=== PATIENT | female | born 1990 | race Caucasian/White ===

== ENCOUNTER 2016-11-10 23:08 | Inpatient (IN) | payer MEDICAID ==
[~2016-11-10] VITALS: Ht 157.5 cm; Wt 82.5 kg
[~2016-11-10 23:08] MED LIST: PREN1TAB17 PO
--- NOTE | 2016-11-11 00:28 | TRIAGE ---
OB Triage Datetime Report Generated by CPN: 11/11/2016 00:27 Datetime: 11/11/2016 00:24 Time of Arrival: 11/10/2016 23:05 EGA: 39.3 Arrived By: Wheelchair Arrived From: Home Chief Complaint: w/ c/o srom at 2225 Movement: Present Contractions: Irregular Time Contractions Began: 11/10/2016 16:00 Rupture of Membranes: Ruptured Vaginal Bleeding: None Vaginal Discharge: Present Recent Sexual Intercouse: Denies Abdominal Trauma: Not Applicable Time Provider Notified: 11/10/2016 23:40 Provider Notified: Dr Milton Initial Plan: EFM, SVE Datetime: 11/11/2016 00:18 Vaginal Exam Membrane Status: Ruptured
[2016-11-11 00:48] VITALS: BP 121/69; PULSE 69; RESP 18
[2016-11-11] MEDS ORDERED: FERR134T PO (00:50)
[2016-11-11] MEDS ORDERED: METHYLERGONOVINE 0.2 MG INJ IM PRN (01:00)
[2016-11-11] MEDS ORDERED: OXYTOCIN 30 UNITS/LR 500 ML IV SCH ×3 (01:00→09:30)
[2016-11-11] MEDS ORDERED: MISOPROSTOL 200 MCG TAB PR PRN (01:00)
[2016-11-11] MEDS ORDERED: IBUPROFEN 600 MG TAB PO PRN (01:00)
[2016-11-11] MEDS ORDERED: LIDOCAINE 1% (MPF) 30 ML INJ INJ PRN (01:00)
[2016-11-11] MEDS ORDERED: CARBOPROST 250 MCG INJ IM PRN (01:00)
[2016-11-11] MEDS ORDERED: OXYTOCIN 30 UNITS/LR 500 ML IV PRN (01:00)
[2016-11-11] MEDS: LACTATED RINGER'S 1,000 ML IV SCH ×3 (01:13→15:28)
[2016-11-11 01:42] VITALS: BP 110/69; PULSE 73; RESP 18
[2016-11-11 01:43] LABS: ADD SCAN DIFF NO
[2016-11-11 01:46] LABS: BASOPHILS % 0.5 % (0.0-2.0); EOSINOPHILS # 0.1 10^3/ul (0.0-0.5); EOSINOPHILS % 0.8 % (0.0-7.0); HEMATOCRIT 35.6 % (37.0-47.0); HEMOGLOBIN 12.3 g/dl (12.0-16.0); LYMPHOCYTES # 2.4 10^3/ul (0.8-2.9); LYMPHOCYTES % 30.4 % (15.0-51.0); MEAN CORPUSCULAR HEMOGLOBIN 30.4 pg (29.0-33.0); MEAN CORPUSCULAR HGB CONC 34.6 g/dl (32.0-37.0); MEAN CORPUSCULAR VOLUME 87.9 fl (82.0-101.0); MEAN PLATELET VOLUME 10.4 fl (7.4-10.4); MONOCYTE # 0.5 10^3/ul (0.3-0.9); MONOCYTES % 6.1 % (0.0-11.0); NEUTROPHIL # 4.7 10^3/ul (1.6-7.5); NEUTROPHILS % 60.7 % (39.0-77.0); PLATELET COUNT 181 10^3/UL (140-415); RED BLOOD COUNT 4.05 10^6/ul (4.20-5.40); RED CELL DISTRIBUTION WIDTH 13.2 % (11.5-14.5); WHITE BLOOD COUNT 7.8 10^3/ul (4.8-10.8)
[2016-11-11 01:56] LABS: INR 0.93; PARTIAL THROMBOPLASTIN TIME 27.4 Sec (25.0-35.0); PROTIME 12.5 Sec (12.2-14.2)
--- NOTE | 2016-11-11 02:13 | RADRPT ---
PROCEDURE: US OB. CLINICAL INDICATION: Spontaneous rupture of membranes, labor. TECHNIQUE: Multiple sonographic images of the pelvis were obtained. Transabdominal imaging only w as performed. The images were reviewed on a PACS workstation. COMPARISON: No prior studies are available for comparison. FINDINGS: There is a single viable intrauterine gestation. Cardiac activity is present with 139 beats per minute. There is a cephalic presentation. Measurements were made in order to determine age. The results are as follows: BPD = 9.12 cm HC = 33.94 cm AC = 36.42 cm FL = 7.73 cm Estimated gestational age of approximately 39 weeks 0 days. The estimated date of delivery is 11/18/2016. The EFW = 3820 g. EFW percentile: 75% The placenta is fundal, grade II. There is no evidence for an abruption or placenta previa. IMPRESSION: 1. Single viable intrauterine gestation of approximately 39 weeks 0 days, based on ultrasound measu rements. The estimated date of delivery is 11/18/2016. 2. EFW percentile: 75%. RPTAT: HTAR .Toribio Luciano MD, MD Date Time Electronically viewed and signed by .Toribio Luciano MD, on 11/11/2016 02:13 .R/
--- NOTE | 2016-11-11 06:50 | HP ---
Date/Time of Note Date/Time of Note DATE: 11/11/16 TIME: 06:45 OB - History Hx of Present Free Text/Dictation 26 Year-old with SIUP at 39 3/7 weeks presents with a chief complaint of LOF. She has been receiving her care with Dr. Whiteside. She states good movement. She denies nausea, vomiting, shortness of breath, chest pain, and abdominal pain between contractions, headache, visual changes, vaginal bleeding. Chief Complaint: Leakage of fluid : 3 Para: 0 Spontaneous : 2 Care: Good Care Ultrasounds: Normal mid trimester US Obstetrical Complications: None Medical Complications: None Past Family/Social History * Past Medical, Surgical, Family and Obstetric Histories reviewed from chart. Blood Type: O+ Rubella: immune RPR/VDRL: Negative GBS Status: Negative HBsAG: Negative OB Admission Exam Vital Signs Vital Signs Vital Signs Date Time Temp Pulse Resp B/P Pulse Ox O2 Delivery O2 Flow Rate FiO2 11/11/16 01:42 98.6 73 18 110/69 Room Air Physical Exam HEENT: WNL Heart: Rhythm Normal Lungs: Clear Abdomen: WNL Extremities: Normal Cervical Dilatation: 1cm Effacement: 50% Station: -3 Membranes: Ruptured Amniotic Fluid: Clear Heart Rate: 140's Accelerations: Accelerations Present Decelerations: No Decelerations Varibility: Moderate Contractions on Admission: 6-10 Minutes Apart Intensity: Mild Last 72 hours Lab Results CBC & BMP 11/11/16 01:25 OB Assessment/Plan Other plan: 26 Year-old with SIUP at 39 3/7 weeks with SROM - FHR: No sign of metabolic acidosis- Category I - Continious EFM, toco - CBC, blood type and screen - Analgesia options with R/B/A discussed in detail with patient - Epidural per patient request - Please see the orders - O+/Rubella: Immune/GBS negative Admission, procedures, expectations, risks and possible complications have been discussed in detail with the patient. Risk of vaginal delivery including but not limited to bleeding, infection, cervical laceration, placental retention, injury to fetus, blood transfusion, blood transfusion related infection, risk of anesthesia, adhesion, cervical laceration, episiotomy/laceration, possible delivery with risk of bleeding, infection, injury to other organs ( bowel, bladder, ureter, vessels, nerves), injury to fetus, blood transfusion, blood transfusion related infection, risk of anesthesia, scar and hernia formation, needs for future , removal of uterus or any other indicated surgery discussed with the patient. She expressed understanding and repeats the risks. All of her questions were answered; all appropriate consents will be signed. PHYSICIAN'S VERIFICATION OF INFORMED CONSENT: The patient was counseled regarding the procedure, its indications, risks, potential complications and alternatives and any questions were answered. Consent was obtained. PLANNED PROCEDURE/TREATMENT: Vaginal delivery with possible vacuum/forceps delivery episiotomy, repair of laceration possible delivery PHYSICIAN'S VERIFICATION OF INFORMED CONSENT FOR BLOOD TRANSFUSION: There is a reasonable possibility that blood transfusion will be necessary as a result of the patient's procedure. I have discussed the following with the patient/patient's legal office services representative: An explanation of the benefits and risks of the transfusion of blood or blood products and the possible alternatives. Al questions have been answered to the patient's/patients legal representatives satisfaction. INFORMED CONSENT: The patient has been informed of: - The nature of the proposed care, treatment, services, medic- Potential benefits, risks or side effects, including potential problems related to recuperation. - The likelihood of achieving care treatment and service goals. - Reasonable alternatives to the proposed care, treatment and service. - The relevant risks, benefits and side effects related to alternatives, including the possible results of not receiving care, treatment and services. - When indicated, any limitations on the confidentiality of information learned from or about the patient. - If appropriate, the risks, benefits and alternatives of the drugs to be used for sedation/analgesia including moderate sedation. - If appropriate, patient has been provided information on the risks, benefits and alternatives to the transfusion of blood and/or blood products. SHANON CUNNINGHAM Nov 11, 2016 06:50
[2016-11-11] MEDS ORDERED: AMPICILLIN 2 GM/NS (PMX) 100 ML IVPB ONE (10:30)
[2016-11-11] MEDS: AMPICILLIN 1 GM/NS (PMX) 50 ML IVPB SCH ×3 (13:14→23:02)
[2016-11-11] MEDS: BUTORPHANOL 2 MG INJ IV PRN ×2 (15:46→20:28)
[2016-11-12] MEDS: LACTATED RINGER'S 1,000 ML IV SCH ×3 (00:02→15:35)
[2016-11-12] MEDS: LACTATED RINGER'S 1,000 ML IV PRN ×2 (00:11→23:19)
[2016-11-12] MEDS ORDERED: morphine 2 MG INJ IV PRN ×2 (00:30)
[2016-11-12] MEDS ORDERED: CITRIC ACID/NA CITRATE 30 ML CUP PO ONE (00:30)
[2016-11-12] MEDS ORDERED: ONDANSETRON 4 MG INJ IV ONE (00:30)
[2016-11-12] MEDS ORDERED: PROCHLORPERAZINE 10 MG INJ IV PRN (00:30)
[2016-11-12] MEDS ORDERED: NALOXONE (0.4 MG/ML) INJ IV PRN (00:30)
[2016-11-12] MEDS ORDERED: DIPHENHYDRAMINE 50 MG INJ IV PRN (00:30)
[2016-11-12] MEDS ORDERED: KETOROLAC 30 MG INJ IV PRN (00:30)
[2016-11-12] MEDS ORDERED: ONDANSETRON 4 MG INJ IV PRN (00:30)
[2016-11-12] MEDS ORDERED: FENTAnyl 2MCG/ML-ROPIV 0.2% 100 ML ONE (00:36)
[2016-11-12] MEDS: AMPICILLIN 1 GM/NS (PMX) 50 ML IVPB SCH ×6 (03:07→22:00)
[2016-11-12] MEDS: FENTAnyl 2MCG/ML-ROPIV 0.2% 100 ML BAG EPI SCH ×2 (09:22→16:58)
[2016-11-12] MEDS ORDERED: MINERAL OIL LIGHT 10 ML VIAL TOP ONE (11:30)
[2016-11-12] MEDS ORDERED: CARBOPROST 250 MCG INJ IM PRN (23:00)
[2016-11-12] MEDS ORDERED: MISOPROSTOL 200 MCG TAB PR PRN (23:00)
[2016-11-12] MEDS ORDERED: CEFAZOLIN 2 GM/50 ML (PMX) 50 ML IV SCH (23:00)
[2016-11-12] MEDS ORDERED: OXYTOCIN 30 UNITS/LR 500 ML IV SCH (23:00)
[2016-11-12] MEDS ORDERED: OXYTOCIN 30 UNITS/LR 500 ML IV PRN (23:00)
[2016-11-12] MEDS ORDERED: METHYLERGONOVINE 0.2 MG INJ IM PRN (23:00)
[2016-11-12] MEDS ORDERED: METOCLOPRAMIDE 10 MG INJ ONE (23:36)
[2016-11-12] MEDS ORDERED: PHENYLephrine (100 MCG/ML) 5ML SYG ONE (23:36)
[2016-11-12] MEDS ORDERED: NA BICARBONATE 8.4% 50 ML SYG ONE (23:36)
[2016-11-12] MEDS ORDERED: FENTAnyl 50 MCG/ML VIAL ONE (23:36)
[2016-11-12] MEDS ORDERED: OXYTOCIN 10 UNIT INJ ONE (23:36)
[2016-11-12] MEDS ORDERED: morphine SULFATE/PF (10 MG/10 ML) INJ ONE (23:36)
[2016-11-12] MEDS ORDERED: LIDOCAINE 2% (SDV) 5 ML INJ ONE (23:36)
--- NOTE | 2016-11-12 23:39 | QN ---
Documentation Comment Patient had been managed during her intrapartum course by Dr. Whiteside. I was called by RN when there was no progression after 5 hours as well as category 2 tracing. Attended to the patient bedside. NST reviewed. Deep variable with slow recovery as well as decreased variability noted. Cervical exam still 680-1 vertex due to failure to progress due to failure to progress over 5 hours as well as category 2 tracing discussed with the patient regarding . Risk and benefit of including risk of infection, bleeding, damage to surrounding structures including bowel and bladder and risk of blood transfusion including but not limited to blood borne infection including HIV hepatitis B and C and transfusion reaction discussed with the patient in detail and informed consent was obtained. Patient verbalized understanding all above risks and desires to proceed. OR and anesthesia was notified. Proceed with urgent section RYANN BUNDY MD Nov 12, 2016 23:39
[2016-11-12] MEDS ORDERED: KETAMINE 500 MG INJ ONE (23:49)
[2016-11-12] MEDS ORDERED: MIDAZOLAM 1 MG/ML 2 ML INJ ONE (23:59)
[2016-11-13] VITALS (7 sets, daily range): BP systolic 113–137; BP diastolic 68–83; PULSE 81–100; RESP 18–20
[2016-11-13] MEDS ORDERED: TRIMETHOBENZAMIDE 100 MG/ML VIAL IM PRN (00:30)
[2016-11-13] MEDS ORDERED: morphine 2 MG INJ IV PRN ×2 (00:30)
[2016-11-13] MEDS ORDERED: ONDANSETRON 4 MG INJ IV PRN ×2 (00:30)
[2016-11-13] MEDS ORDERED: FENTAnyl 50 MCG/ML VIAL IV PRN ×3 (00:30)
[2016-11-13] MEDS ORDERED: EPHEDrine SULFATE 50 MG/5 ML SYG IV PRN (00:30)
[2016-11-13] MEDS ORDERED: LABETALOL HCL 20MG INJ IV PRN (00:30)
[2016-11-13] MEDS ORDERED: DIPHENHYDRAMINE 50 MG INJ IV PRN ×2 (00:30)
[2016-11-13] MEDS ORDERED: hydrALAzine 20 MG INJ IV PRN (00:30)
[2016-11-13] MEDS ORDERED: HYDROmorphONE (0.2 MG/ML) 10ML SYG IV PRN ×3 (00:30)
[2016-11-13] MEDS ORDERED: NALOXONE (0.4 MG/ML) INJ IV PRN (00:30)
[2016-11-13] MEDS ORDERED: MEPERIDINE 25 MG INJ IV PRN (00:30)
[2016-11-13] MEDS: LACTATED RINGER'S 1,000 ML IV SCH ×3 (00:50→17:20)
--- NOTE | 2016-11-13 00:52 | OPR ---
Operative Report Planned Procedure Free Text/Dictation Patient had been managed after she presented with SROM and during her labor course by Dr. Whiteside. I was called by RN when there was failure to progress after 5 hours noted no cervical change, Tracing reviewed and noted to be Cat 2 Discussed with the patient about section due to FTP and Cat 2 tracing Risks and benefits of section including risk of infection, bleeding, damage to surrounding structures including bowel and bladder and risk of blood transfusion including but not limited to blood borne infection including HIV, hepatitis B and C and transfusion reaction discussed with the patient in detail and informed consent was obtained, Patient verbalized understanding all above risks and desired to proceed. OR and anesthesia notified Procedure date Nov 12, 2016 Procedure(s) PLTCS vis pfanenstiel skin incision Performed by: RYANN BUNDY MD Assisting provider: RAFAEL ÁLVAREZ Anesthesiologist: Rafa Kingsley M.D. Pre-procedure diagnosis IUP at 39 + weeks SROM Acive labor FTP Cat 2 tracing Anesthesia Type: epidural Procedure Description Under satisfactory [Epidural ] anesthesia, the patient was prepped and draped and placed in a supine position, tilted to the left. Pfannenstiel incision was made, carried through the subcutaneous tissue. Bleeders brought under control with electrocautery. Fascia incised to the length of the incision. Rectus muscles from the fascia, divided midline. Peritoneum exposed, entered through a transverse incision. Exploration of abdomen revealed gravid uterus. Bladder flap was developed. Transverse incision was made in the lower segment of the uterus. Amniotic sac ruptured. [Clear ] amniotic fluid noted. head was grasped and was brought up to the incision,. it was noted to be OP. then the [] Nasal oropharyngeal suction was performed. The baby was handed to the team for immediate attention. baby boy , 7, 8, 9 The placenta was delivered manually intact. Uterine cavity was cleaned with wet sponge and drainage established. Uterus closed in 2 layers using 0 Monocryl [] in continuous fashion in 2 layers. Excellent Hemostasis of the incision obtained. Peritoneal cavity irrigated with warm saline. Sponge, needle and instrument count reported to be correct. Abdominal peritoneum closed with 2-0 vicryl continuously. Rectus muscle approximated with [2-0 vicryl ]. Fascia closed with 1-0 PDS , and skin closed with 3-0 Monocryl . Estimated blood loss 600 mL. Post-Procedure Findings: Live Baby [], Apgars [] and [], weight [], position [], [] presentation []cord. Specimen removed: Yes Complications: None Pt Condition post procedure: stable Disposition: PACU Physician Certification I, the undersigned physician, hereby certify that I have discussed the procedure described in this consent form with this patient (or the patient's legal veterans contact representative), including: * The risk and benefits of the procedure; * Any adverse reactions that may reasonably be expected to occur; * Any alternative efficacious methods of treatment which may be medically viable ; * The potential problems that may occur during recuperation; * Potential for blood transfusion and associated risks/benefits; and * Any research or economic interest I may have regarding this treatment. I further certify that the patient/legally responsible person was encouraged to ask question and that all questions were answered. RYANN BUNDY MD Nov 13, 2016 00:52
[2016-11-13] MEDS: AMPICILLIN 1 GM/NS (PMX) 50 ML IVPB SCH (01:00)
[2016-11-13 01:05] LABS: CBV Oxygen Sat 90.7 mmHG; CBV Total Hemglobin 12.9 g/dl; Cord Blood Venous AADO2 50.1 mmHg; Cord Blood Venous pO2 47.1 mmHG (15.0-45.0); Fraction OxyHgb Cord Venous 89.3 %; MODE ROOM AIR; MetHgb Cord Venous 0.5 %; Sample Type CBV
[2016-11-13] MEDS: KETOROLAC 30 MG INJ IV PRN ×3 (02:08→19:01)
[2016-11-13] MEDS ORDERED: GENTAMICIN IVPB SCH (05:00)
[2016-11-13] MEDS ORDERED: SOD CHLORIDE 0.9% IVPB SCH (05:00)
[2016-11-13] MEDS ORDERED: OXYTOCIN 30 UNITS/LR 500 ML IV PRN (05:00)
[2016-11-13] MEDS ORDERED: POLYSACCHARIDE IRON COMPLEX CAP PO ONE (05:00)
[2016-11-13] MEDS ORDERED: METHYLERGONOVINE 0.2 MG INJ IM PRN (05:00)
[2016-11-13] MEDS ORDERED: CARBOPROST 250 MCG INJ IM PRN (05:00)
[2016-11-13] MEDS ORDERED: MISOPROSTOL 200 MCG TAB PR PRN (05:00)
[2016-11-13] MEDS: CLINDAMYCIN 900 MG/D5W (PMX) 50 ML IV SCH ×3 (05:45→21:16)
[2016-11-13 07:10] LABS: ADD SCAN DIFF NO
[2016-11-13 07:14] LABS: BASOPHILS % 0.2 % (0.0-2.0); EOSINOPHILS % 0.2 % (0.0-7.0); HEMATOCRIT 32.6 % (37.0-47.0); HEMOGLOBIN 10.8 g/dl (12.0-16.0); LYMPHOCYTES # 1.8 10^3/ul (0.8-2.9); LYMPHOCYTES % 14.3 % (15.0-51.0); MEAN CORPUSCULAR HEMOGLOBIN 29.8 pg (29.0-33.0); MEAN CORPUSCULAR HGB CONC 33.1 g/dl (32.0-37.0); MEAN CORPUSCULAR VOLUME 90.1 fl (82.0-101.0); MEAN PLATELET VOLUME 10.2 fl (7.4-10.4); MONOCYTE # 0.7 10^3/ul (0.3-0.9); MONOCYTES % 5.2 % (0.0-11.0); NEUTROPHIL # 10.2 10^3/ul (1.6-7.5); NEUTROPHILS % 79.6 % (39.0-77.0); PLATELET COUNT 164 10^3/UL (140-415); RED BLOOD COUNT 3.62 10^6/ul (4.20-5.40); RED CELL DISTRIBUTION WIDTH 13.3 % (11.5-14.5); WHITE BLOOD COUNT 12.8 10^3/ul (4.8-10.8)
[2016-11-13] MEDS: MULTIVIT/MIN/FOLATE/IRON/PREN TAB PO SCH (09:00)
[2016-11-14] MEDS: IBUPROFEN 600 MG TAB PO SCH ×5 (00:33→23:54)
[2016-11-14] MEDS: ACETAMINOPHEN/CODEINE #3 TAB PO PRN (00:34)
[2016-11-14 03:45] VITALS: BP 102/65; PULSE 76; RESP 18
[2016-11-14] MEDS: LACTATED RINGER'S 1,000 ML IV SCH (07:00)
[2016-11-14 08:00] VITALS: BP 109/67; PULSE 70; RESP 18
[2016-11-14] MEDS: MULTIVIT/MIN/FOLATE/IRON/PREN TAB PO SCH (08:34)
--- NOTE | 2016-11-14 11:59 | PN ---
Date/Time of Note Date/Time of Note DATE: 11/14/16 TIME: 11:57 OB Subjective Subjective Subjective Patient doing well. Tolerating POs. Passing flatus. Pain controlled. OB Objective Objective Objective AFVSS Gen: NAD Abd: I-C/D/I OB Assessment/Plan Other Assessment: POD1 Other plan: Continue routine postop care. MAURILIO EMERSON Nov 14, 2016 11:59
[2016-11-14 15:50] VITALS: BP 98/52; PULSE 74; RESP 18
[2016-11-14 19:45] VITALS: BP 110/68; PULSE 74; RESP 18
[2016-11-15 04:00] VITALS: BP 100/56; PULSE 72; RESP 19
[2016-11-15] MEDS: IBUPROFEN 600 MG TAB PO SCH ×4 (06:13→23:51)
[2016-11-15 08:10] VITALS: BP 109/77; PULSE 74; RESP 18
[2016-11-15] MEDS: MULTIVIT/MIN/FOLATE/IRON/PREN TAB PO SCH (08:32)
--- NOTE | 2016-11-15 10:23 | PN ---
Date/Time of Note Date/Time of Note DATE: 11/15/16 TIME: 10:21 OB Subjective Subjective Subjective Status post primary Postop day #2 OB Objective Objective Objective Patient is doing well and has no complaints AF, VSS HEENT: WNL Heart: Rhythm Normal Lungs: Clear Abdomen: WNL (Incision clean dry intact) OB Assessment/Plan Other Assessment: Status post postop day #2 Other plan: Repeat labs in a.m. Continue with present management KATHY WHEAT MD Nov 15, 2016 10:22
[2016-11-15 11:30] LABS: ADD SCAN DIFF NO
[2016-11-15 11:33] LABS: BASOPHILS % 0.2 % (0.0-2.0); EOSINOPHILS # 0.1 10^3/ul (0.0-0.5); EOSINOPHILS % 1.3 % (0.0-7.0); HEMATOCRIT 30.5 % (37.0-47.0); HEMOGLOBIN 10.2 g/dl (12.0-16.0); LYMPHOCYTES # 1.2 10^3/ul (0.8-2.9); LYMPHOCYTES % 12.9 % (15.0-51.0); MEAN CORPUSCULAR HEMOGLOBIN 29.8 pg (29.0-33.0); MEAN CORPUSCULAR HGB CONC 33.4 g/dl (32.0-37.0); MEAN CORPUSCULAR VOLUME 89.2 fl (82.0-101.0); MEAN PLATELET VOLUME 9.9 fl (7.4-10.4); MONOCYTE # 0.3 10^3/ul (0.3-0.9); MONOCYTES % 3.3 % (0.0-11.0); NEUTROPHIL # 7.3 10^3/ul (1.6-7.5); NEUTROPHILS % 81.4 % (39.0-77.0); PLATELET COUNT 215 10^3/UL (140-415); RED BLOOD COUNT 3.42 10^6/ul (4.20-5.40); RED CELL DISTRIBUTION WIDTH 13.3 % (11.5-14.5); WHITE BLOOD COUNT 8.9 10^3/ul (4.8-10.8)
[2016-11-15 15:40] VITALS: BP 102/57; PULSE 66; RESP 18
[2016-11-15 20:20] VITALS: BP 114/61; RESP 17
[2016-11-15] MEDS: LANOLIN 7 GM TUBE TOP PRN (23:52)
[2016-11-16] MEDS: LANOLIN 7 GM TUBE TOP PRN (03:04)
[2016-11-16 04:00] VITALS: BP 101/56; PULSE 73; RESP 18
[2016-11-16] MEDS: IBUPROFEN 600 MG TAB PO SCH ×2 (05:44→12:35)
[2016-11-16 08:00] VITALS: BP 107/62; PULSE 71; RESP 17
[2016-11-16] MEDS: ACETAMINOPHEN/CODEINE #3 TAB PO PRN (08:31)
[2016-11-16] MEDS: MULTIVIT/MIN/FOLATE/IRON/PREN TAB PO SCH (08:31)
[2016-11-16] MEDS ORDERED: MEASLES,MUMPS,RUBELLA VACCINE INJ SC* ONE (09:00)
[2016-11-16] MEDS ORDERED: DIPHTH/TET/ACEL PERTUSS (ADULT) 0.5 ML VIAL IM* ONE (09:00)
--- NOTE | 2016-11-16 14:30 | DS ---
DATE OF ADMISSION: 11/11/2016 DATE OF DISCHARGE: 11/16/2016 ADMITTING DIAGNOSIS: at term with spontaneous rupture of membranes. HISTORY: A 26-year-old female 3, para 0-0-2-0 at time of admission, para 1-0-2-1 at time of discharge with term , presented with spontaneous rupture of membranes on 11/13/2016, afte r obtaining informed consent, the patient underwent a primary section due to failure to pro eduard and category 2 heart tracing. The patient's operation was uncomplicated. Postoperative ly, patient was given clear liquid diet, which was advanced to regular diet, which she tolerated wel l. The patient is discharged on postop day #3 after having had adequate bladder and bowel function. CONDITION ON DISCHARGE: Stable. DISCHARGE INSTRUCTIONS: DIET: Regular. ACTIVITIES: Pelvic rest and no strenuous activities. MEDICATIONS: 1. Motrin as needed for pain. 2. Continue with vitamins, ferrous sulfate. Follow up in clinic in 2 weeks. FINAL DIAGNOSES: 1. Term , delivered by section. 2. Failure to progress. 3. Category 2 heart tracing. 4. Mother with single liveborn. Dictated By: OFELIA DOBBS/NTS Conf#: [id number] DID#: [id number]
== END 2016-11-16 15:55 | disposition home or self-care (01) | DRG 766 ==
LOC: L-D 23:08 → OBT 23:08 → L-D 11-11 00:15 → OBT 11-11 00:15 → L-D 11-12 02:01 → PP1 11-13 04:11
PROVIDERS: ADMIT Obstetrics & Gynecology; ATTEND Obstetrics & Gynecology
PROC: 4A1HX4Z Monitoring of Products of Conception, Cardiac Electrical Activity, External Approach (ICD-10-PCS; 2016-11-11)
PROC: 4A033R1 Measurement of Arterial Saturation, Peripheral, Percutaneous Approach (ICD-10-PCS; 2016-11-13)
PROC: 10D00Z1 Extraction of Products of Conception, Low, Open Approach (ICD-10-PCS; principal; 2016-11-13 00:15)
PROC: 3E0234Z Introduction of Serum, Toxoid and Vaccine into Muscle, Percutaneous Approach (ICD-10-PCS; 2016-11-16)
DX: O62.0 Primary inadequate contractions (principal); O76 Abnormality in fetal heart rate and rhythm complicating labor and delivery; Z23 Encounter for immunization; Z3A.39 39 weeks gestation of pregnancy; Z37.0 Single live birth
CPT/HCPCS: 36415; 62319; 76815; 82803; 85025; 85610; 85730; 86592; 86900; 86901; 87340; 90715; 94760; 99464; G0463; J0290; J0690; J1200; J1580; J1885; J2210; J2250; J2274; J2370; J2405; J2590; J2765; J3010; J7120

== ENCOUNTER 2017-01-30 18:58 | Emergency (ER) | payer MEDICAID ==
[~2017-01-30] VITALS: Ht 160 cm; Wt 73.2 kg
[~2017-01-30 18:58] MED LIST changes: +FERR134T PO
[2017-01-30 19:03] VITALS: Ht 160 cm; Wt 73.2 kg
[2017-01-30] MEDS ORDERED: CEPH-443 PO (20:16)
[2017-01-30] MEDS ORDERED: SULF1TAB31 PO (20:16)
[2017-01-30] MEDS ORDERED: IBUP-1542 PO (20:16)
[2017-01-30 20:32] VITALS: BP 119/66; PULSE 69; RESP 18; TEMP 98
--- NOTE | 2017-01-30 20:32 | ERD ---
ER Documentation Chief Complaint Date/Time DATE: 01/30/17 TIME: 20:29 Chief Complaint abscess to rt nipple and inner buttock. pt. is breast feeding HPI 28-year-old female is here in emergency department for redness and swelling on the left buttock area noticed 3 days ago. Patient always has on and off abscess on the left buttock area, now it is more of a pimple, was oozing some purulent discharge. Patient's complete notes pain sharp pain 4/and scale, is worse upon touching the area. Patient also noted some overgrowth in the areola of the right nipple area, no redness or swelling, no purulent discharge. No discharge coming from the nipple. No deformity noted. Nontender on palpation. Patient denies any fever or chills. ROS All systems reviewed and are negative except as per history of present illness. Medications Home Meds Active Scripts Ibuprofen* (Motrin*) 600 Mg Tab, 600 MG PO Q6H Y for PAIN AND OR ELEVATED TEMP, #30 TAB Prov:HERMINIO GOMEZ NP 01/30/17 Cephalexin* (Keflex*) 500 Mg Capsule, 500 MG PO QID for 10 Days, CAP Prov:HERMINIO GOMEZ NP 01/30/17 Sulfamethoxazole/Trimethoprim* (Bactrim Ds* Tablet) 1 Each Tablet, 1 TAB PO BID for 10 Days, #20 TAB Prov:HERMINIO GOMEZ NP 01/30/17 Reported Medications Ferrous Sulfate (Iron) 134 Mg Tablet, 134 MG PO DAILY, TAB 11/11/16 Vit-Iron Fumarate-FA ( Tablet) 1 Each Tablet, 1 EACH PO DAILY 11/29/13 Allergies Allergies: Coded Allergies: No Known Allergy (Unverified , 11/11/16) PMhx/Soc Medical and Surgical Hx: pt denies Medical Hx, pt denies Surgical Hx Hx Alcohol Use: No Hx Substance Use: No Hx Tobacco Use: No Smoking Status: Never smoker FmHx Family History: No coronary disease, No diabetes, No other Physical Exam Vitals Vital Signs Date Time Temp Pulse Resp B/P Pulse Ox O2 Delivery O2 Flow Rate FiO2 01/30/17 19:03 98.3 88 18 119/86 99 Physical Exam GENERAL: The patient is well developed and appropriate for usual state of health, in no apparent distress. CHEST: Clear to auscultation bilaterally. There are no rales, wheezes or rhonchi. Noted overgrowth of glands in the areols of the right breast area, no nipple discharge, nontender on palpation. HEART: Regular rate and rhythm. No murmurs, clicks, rubs or gallops. No S3 or S4. ABDOMEN: Soft, nontender and nondistended. Good bowel sounds. No rebound or guarding. No gross peritonitis. No gross organomegaly or masses. No Marinelli sign or McBurney point tenderness. BACK: No midline or flank tenderness. EXTREMITIES: Equal pulses bilaterally. There is no peripheral clubbing, cyanosis or edema. No focal swelling or erythema. Full range of motion. Grossly neurovascularly intact. NEURO: Alert and oriented. Cranial nerves 2-12 intact. Motor strength in all 4 extremities with 5/5 strength. Sensation grossly intact. Normal speech and gait. SKIN: Noted 1 cm diameter erythematous indurated area on the left buttock, no fluctuance noted. There is no apparent ecchymosis or petechia. The skin is warm and dry. HEMATOLOGIC AND LYMPHATIC: There is no evidence of excessive bruising or lymphedema. No gross cervical, axillary, or inguinal lymphadenopathy. Procedures/MDM Medical decision making: Patient symptoms in the left buttock was likely consistent with a early soft tissue abscess, no fluctuance noted at this time, incision and drainage not indicated at this time. Oral antibiotics will be started, patient is advised to pump and dump for 14 days for antibiotics since patient is breast-feeding, substitute with the formula feeding. Noted normal variation in the right areolar, no symptoms of any abscess or infection, no symptoms of any cellulitis or mastitis. Patient was given for Bactrim, Keflex, ibuprofen, is advised to follow-up with primary care doctor in 2-3 days for reevaluation of symptoms and recheck. Patient is advised to return to emergency department for any worsening symptoms. Disposition: Home. Stable Departure Diagnosis: Primary Impression: Soft tissue abscess Condition: Stable Patient Instructions: Abscess, Incision And Drainage HERMINIO GOMEZ NP Jan 30, 2017 20:32
== END 2017-01-30 20:32 | disposition home or self-care (01) ==
LOC: FTE 18:58
DX: L02.31 Cutaneous abscess of buttock (principal)
CPT/HCPCS: 99284

== ENCOUNTER 2017-05-07 13:47 | Emergency (ER) | payer MEDICAID ==
[~2017-05-07] VITALS: Ht 160 cm; Wt 74.5 kg
[~2017-05-07 13:47] MED LIST changes: +CEPH-443 PO; +IBUP-1542 PO; +SULF1TAB31 PO
[2017-05-07 14:05] VITALS: Ht 160 cm; Wt 74.5 kg
[2017-05-07] MEDS ORDERED: KETOROLAC 30 MG INJ IM STA (15:39)
[2017-05-07] MEDS ORDERED: IBUP400T22 PO (15:42)
--- NOTE | 2017-05-07 15:55 | ERD ---
ER Documentation Chief Complaint Date/Time DATE: 05/07/17 TIME: 15:49 Chief Complaint back pain HPI Patient is a 26 year old female who presents with chronic back pain. States that she hurt her back 3 years ago, at work when she fell backwards but did not have any fractures or dislocations. States that the last couple of days, she has been taking care of her baby and carrying her around and has had pain in her low back. Denies radiation of pain, denies numbness tingling or weakness. Denies bowel or bladder incontinence. No new trauma. Has not taken any medication for her symptoms, is . no other c/o ROS All systems reviewed and are negative except as per history of present illness. Medications Home Meds Active Scripts Ibuprofen* (Motrin*) 400 Mg Tab, 400 MG PO Q6, #30 TAB Prov:DULCE MARIA SUTTON PA-C 05/07/17 Ibuprofen* (Motrin*) 600 Mg Tab, 600 MG PO Q6H Y for PAIN AND OR ELEVATED TEMP, #30 TAB Prov:HERMINIO GOMEZ NP 01/30/17 Cephalexin* (Keflex*) 500 Mg Capsule, 500 MG PO QID for 10 Days, CAP Prov:HERMINIO GOMEZ NP 01/30/17 Sulfamethoxazole/Trimethoprim* (Bactrim Ds* Tablet) 1 Each Tablet, 1 TAB PO BID for 10 Days, #20 TAB Prov:HERMINIO GOMEZ NP 01/30/17 Reported Medications Ferrous Sulfate (Iron) 134 Mg Tablet, 134 MG PO DAILY, TAB 11/11/16 Vit-Iron Fumarate-FA ( Tablet) 1 Each Tablet, 1 EACH PO DAILY 11/29/13 Allergies Allergies: Coded Allergies: No Known Allergy (Unverified , 11/11/16) PMhx/Soc Medical and Surgical Hx: pt denies Medical Hx History of Surgery: Yes ( X1) Anesthesia Reaction: No Hx Alcohol Use: No Hx Substance Use: No Hx Tobacco Use: No Smoking Status: Never smoker FmHx Family History: No coronary disease, No diabetes, No other Physical Exam Vitals Vital Signs Date Time Temp Pulse Resp B/P Pulse Ox O2 Delivery O2 Flow Rate FiO2 05/07/17 14:05 98.6 78 19 115/57 100 Physical Exam GENERAL: Well-developed, well-nourished female. Appears in no acute distress. HEAD: Normocephalic, atraumatic. EYES: Pupils are equally reactive bilaterally. EOMs grossly intact. No conjunctival erythema. ENT: Moist mucous membranes. No uvula deviation. No kissing tonsils. No exudates. NECK: Supple. No lymphadenopathy or thyromegaly. No meningismus. negative kernig. negative brudinski. LUNG: Clear to auscultation bilaterally. No rhonchi, wheezing, rales or coarse breath sounds. HEART: Regular rate and rhythm. No murmurs, rubs or gallops. BACK: No midline tenderness. no spinal or paraspinal tenderness. No step-offs or deformities. No open wounds or lacerations. No erythema or swelling. Point tenderness. No flank pain, CVA tenderness. Range of motion intact. Reflexes intact. Strength 5 out of 5. Extremities: Equal pulses bilaterally. No peripheral clubbing, cyanosis or edema. No unilateral leg swelling. NEUROLOGIC: Alert and oriented. Moving all four extremities. 5/5 strength in all extremities. Normal speech. Steady gait. SKIN: Normal color. Warm and dry. No rashes or lesions. Capillary refill < 2 seconds Results 24 hrs Current Medications Medications (Trade) Dose Ordered Sig/Carlo Route PRN Reason Start Time Stop Time Status Last Admin Dose Admin Ketorolac Tromethamine (Toradol) 30 mg ONCE STAT IM 05/07/17 15:39 05/07/17 15:40 DC 05/07/17 15:55 Procedures/MDM ER COURSE: I kept the patient and/or family informed of laboratory and diagnostic imaging results throughout the emergency room course. MEDICAL DECISION MAKING: This is a 26-year-old female who presents with back pain. Vital signs were reviewed. Patient is afebrile. Patient is not hypoxic. Is not toxic or ill appearing. Patient was requesting x-ray of her back. X-rays of by radiologist unremarkable for fracture dislocation. Patient is able to ambulate without assistance. Likely has muscle strain versus sprain. However unable to rule out tendon or ligament injury and advised to follow-up with her primary care provider for further evaluation such as MRI. Patient stated that in the past she did not go to her doctor because she did not have insurance however now she has insurance. Patient was given Toradol here in the ED, tolerated well with no adverse reaction. Negative test. Patient sent home with Naprosyn. Low suspicion for cauda equine syndrome, spinal epidural hematoma, spinal epidural abscess, osteomyelitis, fracture, aortic dissection, AAA, pyelonephritis, nephrolithiasis, septic stone, obstructed stone. DISCHARGE: At this time, patient is stable for discharge and outpatient management with no new complaints during the ER course. Patient was sent home with Naprosyn. Patient will be discharged home with instructions to recheck for new or worsening symptoms such as fever, nausea, weakness, LOC and to follow up with primary care in the next 1-2 days. Patient was advised to return to the ER for any new or worsening symptoms. Plan was discussed and patient and/or family understands and agrees. Home instructions were given. Departure Diagnosis: Primary Impression: Back pain Back pain location: low back pain Chronicity: chronic Back pain laterality : bilateral Sciatica presence: without sciatica Qualified Code: M54.5 - Chronic bilateral low back pain without sciatica Condition: Stable Patient Instructions: Back Pain (Acute Or Chronic) Additional Instructions: Call your primary care doctor TOMORROW for an appointment during the next 1-2 days.See the doctor sooner or return here if your condition worsens before your appointment time. DULCE MARIA SUTTON PA-C May 07, 2017 15:55
--- NOTE | 2017-05-07 16:27 | RADRPT ---
PROCEDURE: Lumbar spine CLINICAL INDICATION: Low back pain TECHNIQUE: Lumbar spine two views COMPARISON: None FINDINGS: Two views lumbar spine demonstrate no displaced fracture. No gross malalignment is seen. There is no anterior or posterior listhesis. The vertebral body heights and disk spaces are well maintained. SI joints within normal limits. Sacral arches are intact. IMPRESSION: No acute fracture dislocation RPTAT: HH .Norm Aguilar MD, MD Date Time Electronically viewed and signed by .Norm Aguilar MD, on 05/07/2017 16:27 .W/
[2017-05-07 17:28] VITALS: BP 116/78; PULSE 85; RESP 18
== END 2017-05-07 17:32 | disposition home or self-care (01) ==
LOC: FTE 13:47
DX: M54.5 Low back pain (principal)
CPT/HCPCS: 72100; 96372; J1885; Z7502